=== PATIENT | female | born 1965 | race Caucasian/White ===

== ENCOUNTER 2025-09-30 08:56 | Observation (INO) ==
--- NOTE | 2025-09-01 09:10 | PAT Medication Instructions ---
Medication Instructions Date of Service September 01, 2025 Home Medications Bifidobacterium infantis 10.5 mg (10 million cell) chewable tablet (Align (B.infantis)) 10.5 mg PO DAILY amlodipine 5 mg tablet 5 mg PO QAM ascorbic acid 7.5 mg-vit E 7.5 unit-biotin 1,250 mcg chewable tablet (Jian r,Skin,Nails with Biotin) 2 tab PO DAILY aspirin 81 mg tablet 81 mg PO QAM atenolol 50 mg tablet 50 mg PO QAM citalopram 10 mg tablet 10 mg PO QAM levothyroxine 88 mcg tablet 88 mcg PO QAM lisinopril 20 mg tablet 20 mg PO QAM metformin 500 mg tablet 500 mg PO BID semaglutide 2 mg/dose (8 mg/3 mL) subcutaneous pen injector (Ozempic) 2 mg subcut Q7D hydroxyzine HCl 25 mg tablet 25 mg PO HS PRN ibuprofen 200 mg tablet (Advil) 400 mg PO BID naproxen sodium 220 mg tablet (Aleve) 440 mg PO DAILY STOP 7 days before surgery semaglutide 2 mg/dose (8 mg/3 mL) subcutaneous pen injector (Ozempic) 2 mg subcut Q7D ASK your surgeon for instructions ibuprofen 200 mg tablet (Advil) 400 mg PO BID naproxen sodium 220 mg tablet (Aleve) 440 mg PO DAILY ASK your prescriber and surgeon aspirin 81 mg tablet 81 mg PO QAM STOP taking 2 weeks before surgery (or as soon as possible if surgery is within 2 weeks) ascorbic acid 7.5 mg-vit E 7.5 unit-biotin 1,250 mcg chewable tablet (Hair,Skin,Nails with Biotin) 2 tab PO DAILY DO NOT take the morning of surgery Bifidobacterium infantis 10.5 mg (10 million cell) chewable tablet (Align (B.infantis)) 10.5 mg PO DAILY lisinopril 20 mg tablet 20 mg PO QAM metformin 500 mg tablet 500 mg PO BID Take morning of surgery With a small sip of water, OTHERWISE NOTHING TO EAT OR DRINK AFTER MIDNIGHT: amlodipine 5 mg tablet 5 mg PO QAM atenolol 50 mg tablet 50 mg PO QAM citalopram 10 mg tablet 10 mg PO QAM levothyroxine 88 mcg tablet 88 mcg PO QAM Take evening before surgery metformin 500 mg tablet 500 mg PO BID hydroxyzine HCl 25 mg tablet 25 mg PO HS PRN(if needed) Other Notes If you have any questions please call us at [phone] or [phone] or [phone] or [phone]
--- NOTE | 2025-09-08 12:20 | Anesthesiology Consultation ---
Date of Service September 08, 2025 Assessment & Plan (1) Encounter for pre-operative examination: Chart Review Chart Review: Acceptable Risk for Surgery and Patient seen in Pre Admission Testing - Check BSG AM DOS - Patient informed by nursing to stop Ozempic 7 days prior to surgery. Last dose of Ozempic scheduled 09/20/25. Will be off Ozempic x 10 days prior to DOS on 09/30/25 - Patient is not an ideal OPJ candidate (lives alone)- currently 23 hour obs Per PAT appt on 09/08/25, no recent illness/disease exposures, illness related symptoms, or recent illness/disease positive tests. Will leave to surgeon's discretion if preop Covid testing needed Teaching & Discussion Pre-Anesthesia Teaching/Discussion Notes: Instructed NPO after midnight before surgery,except medications with 15 cc of water. Medication instructions provided according to the [facility] guidelines. History Surgery Operation Date: 09/30/25 10:40 Proposed Procedures p Left Total Knee Arthroplasty - Klaus Denis MD Height/Weight Height: 5 ft 7 in Weight: 127.6 kg Allergies Allergy/AdvReac Type Severity Reaction Status Date / Time [id number] Reductase Allergy myalgia Verified 08/30/25 09:02 Inhibitor Medications Home Medications Medication Instructions Recorded Confirmed Last Taken Bifidobacterium infantis 10.5 mg 10.5 mg PO DAILY 08/01/25 08/30/25 Unknown (10 million cell) chewable tablet (Align (B.infantis)) amlodipine 5 mg tablet 5 mg PO QAM 08/01/25 08/30/25 08/08/25 05:30 ascorbic acid 7.5 mg-vit E 7.5 2 tab PO DAILY 08/01/25 08/30/25 Unknown unit-biotin 1,250 mcg chewable tablet (Hair,Skin,Nails with Biotin) aspirin 81 mg tablet 81 mg PO QAM 08/01/25 08/30/25 08/08/25 05:30 atenolol 50 mg tablet 50 mg PO QAM 08/01/25 08/30/25 08/08/25 05:30 citalopram 10 mg tablet 10 mg PO QAM 08/01/25 08/30/25 08/08/25 05:30 levothyroxine 88 mcg tablet 88 mcg PO QAM 08/01/25 08/30/25 08/08/25 04:30 lisinopril 20 mg tablet 20 mg PO QAM 08/01/25 08/30/25 08/08/25 05:30 metformin 500 mg tablet 500 mg PO BID 08/01/25 08/30/25 08/07/25 semaglutide 2 mg/dose (8 mg/3 mL) 2 mg subcut Q7D 08/01/25 08/30/25 07/28/25 subcutaneous pen injector (Ozempic) hydroxyzine HCl 25 mg tablet 25 mg PO HS PRN anxiety/insomnia 08/30/25 08/30/25 Unknown ibuprofen 200 mg tablet (Advil) 400 mg PO BID 08/30/25 08/30/25 Unknown naproxen sodium 220 mg tablet 440 mg PO DAILY 08/30/25 08/30/25 Unknown (Aleve) Past Medical History Medical History Diabetes mellitus, type 2 Oral/Weekly Inj History of anxiety History of COVID-19 08/2020, resolved 12/2022, resolved Hypertension Hypothyroidism Osteoarthritis of both knees Exercise / Class Metabolic Activity II 4-5 Yardwork/Stairs/Walk up hill (one flight of stairs - no chest pain or SOB ) Past Surgical History Surgical History History of cornea transplant 2003 2006 History of left cataract extraction (2016) Hx of right cataract extraction Past Anesthesia History No Hx of Anesthesia Complications and No Family Hx of Anesthesia Complications History of PONV No Hx of PONV and No Hx of Motion Sickness Social History Smoking Status: Former smoker Do You Dip or Chew Tobacco: No Smoking End Date: smoked for 10 years until 2006 Hx Alcohol Use: No Hx Substance Use: No substance use type: former substance user and marijuana Last Used Substance Other:: occasional in her 30's to 40's, "none since then" Review of Systems - Hx of snoring in the past - improved with 70lb weight loss - no hx of sleep study Patient denies chest pain, shortness of breath, dyspnea on exertion, reflux, cough, wheezing, palpitations. No hx of seizures, stroke, SD. No hx of blood clots or blood transfusions Physical Exam Vital Signs VITALS BP 158/82 P 72 TEMP 98.1 SP02 97% RESP 16 Constitutional no acute distress ENMT Mouth: no TMJ clicking Thyromental Distance: > or= 3.5 Finger Breadths (3.5) Mallampati Class: III Missing top molars on each side Neck neck extension not limited Respiratory normal respiratory effort; no respiratory distress Auscultation: lungs clear to auscultation bilaterally; no wheezes Cardiovascular Rate/Rhythm: regular rate and regular rhythm Heart Sounds: no murmur Vessels: no carotid bruit Musculoskeletal Spine: no pain with cervical ROM Extremities: extremities normal to inspection Psychiatric Orientation: alert Lab Results Anesthesia Preop Results Results Anesthesia Widget: WBC 7.14 K/ul (4.8-10.8) 09/08/25 Hgb 13.6 g/dl (12.0-16.0) 09/08/25 Hct 40.2 % (37.0-47.0) 09/08/25 Plt 290 K/uL (130-400) 09/08/25 Na 135 mmol/L (136-145) L 09/08/25 K 4.1 mmol/L (3.5-5.1) 09/08/25 Cl 98 mmol/L (98-107) 09/08/25 CO2 28 mmol/L (21-32) 09/08/25 BUN 15 mg/dl (6-23) 09/08/25 Creat 0.73 mg/dl (0.6-1.2) 09/08/25 Glucose Level 176 mg/dl (70-99(Fasting)) H 09/08/25 PT 10.3 Seconds (9.0-12.0) 09/08/25 PTT 27 Seconds (21-31) 09/08/25 INR 1.0 (0.9-1.1) 09/08/25 HA1c 6.7 % (4.5-5.6) H 09/08/25 Blood Type A Positive 09/08/25 Antibody Screen NEGATIVE 09/08/25 Testing Electrocardiogram Date: 09/08/25 Findings: + NSR @ (66bpm) Normal EKG per cardio Chest X-Ray Date: 09/08/25 Findings: + NAD
--- NOTE | 2025-09-22 20:15 | History & Physical Report ---
Date of Service September 22, 2025 Assessment & Plan (1) Osteoarthritis of left knee: 59-year-old female with a several year history of increasing left knee pain discomfort consistent with osteoarthritis. She is failed conservative measures. She is ready to have her left knee fixed. Plan will Tani take her to the operating room left total knee replacement the risks met this procedure explained. Informed consent was obtained. She will stay in hospital overnight likely discharge postop day 1. I will see her back 2 to 3 weeks postop. (2) Osteoarthritis of right knee: (3) Hypertension: (4) Diabetes mellitus, type 2: (5) Hypothyroidism: History of Present Illness Chief Complaint: . Left knee pain. Primary Care Provider: Julia Henley . The patient is a 59-year-old female with who presents now for more definitive treatment of her left knee. She has about a 15-year history of persistent and progressive left knee pain discomfort which gradually got worse over time. 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 On 1 occasion she had pivoted and her knee counter popped and she has had increasing pain since that time. The pain is mostly medial but some global pain. More she is up a lot of the more it swells and the more it hurts. She enjoys exercising but having trouble doing it as her knee swells up afterwards. Difficulty going up and down stairs. There should like to proceed with definitive treatment. Allergies Allergy/AdvReac Type Severity Reaction Status Date / Time [id number]-[id number] Reductase Allergy myalgia Verified 08/30/25 09:02 Inhibitor Home Medications Medication Instructions Recorded Confirmed Type Bifidobacterium infantis 10.5 mg 10.5 mg PO DAILY 08/01/25 08/30/25 History (10 million cell) chewable tablet (Align (B.infantis)) amlodipine 5 mg tablet 5 mg PO QAM 08/01/25 08/30/25 History ascorbic acid 7.5 mg-vit E 7.5 2 tab PO DAILY 08/01/25 08/30/25 History unit-biotin 1,250 mcg chewable tablet (Hair,Skin,Nails with Biotin) aspirin 81 mg tablet 81 mg PO QAM 08/01/25 08/30/25 History atenolol 50 mg tablet 50 mg PO QAM 08/01/25 08/30/25 History citalopram 10 mg tablet 10 mg PO QAM 08/01/25 08/30/25 History levothyroxine 88 mcg tablet 88 mcg PO QAM 08/01/25 08/30/25 History lisinopril 20 mg tablet 20 mg PO QAM 08/01/25 08/30/25 History metformin 500 mg tablet 500 mg PO BID 08/01/25 08/30/25 History semaglutide 2 mg/dose (8 mg/3 mL) 2 mg subcut Q7D 08/01/25 08/30/25 History subcutaneous pen injector (Ozempic) hydroxyzine HCl 25 mg tablet 25 mg PO HS PRN anxiety/insomnia 08/30/25 08/30/25 History ibuprofen 200 mg tablet (Advil) 400 mg PO BID 08/30/25 08/30/25 History naproxen sodium 220 mg tablet 440 mg PO DAILY 08/30/25 08/30/25 History (Aleve) Past Med/Surg History Problem List Encounter for pre-operative examination Osteoarthritis of right knee Osteoarthritis of left knee Medical History Osteoarthritis of both knees History of COVID-19 08/2020, resolved 12/2022, resolved History of anxiety Hypothyroidism Diabetes mellitus, type 2 Oral/Weekly Inj Hypertension Surgical History Hx of right cataract extraction History of cornea transplant 2003 2006 History of left cataract extraction (2015) Social History Smoking Status: Former smoker Tobacco Type: Cigarettes Second Hand Exposure: Yes (hx); Do You Dip or Chew Tobacco: No; Hx Alcohol Use: No Hx Substance Use: No Preferred Language: Mongolian Communication Ability: Effective Data Entry Clerk Required: No Beliefs That Will Affect Care: None Current Living Situation: Alone Feels Safe at Home: Yes Assistive Devices: None Review of Systems All systems reviewed & are unremarkable except as noted in HPI & below. Physical Exam . Physical examination reveals Pleasant 59-year-old female. Today she looks to be in reasonably health. Moderately obese. Examination of the left knee reveals the patient ambulates independently. Got a moderate to large soft tissue envelope. Tender to along the medial joint line. Small knee effusion. Range of motion is 0 to about 110. No instability. No pain with hip motion. Respiratory normal respiratory effort, lungs clear to auscultation Cardiovascular RRR, no murmur, no edema Gastrointestinal (Abdomen) normal bowel sounds, soft, nontender, no hepatosplenomegaly Results & Data Results & Data Laboratory Results . Diagnostic Findings . PG Care Time/CCT Total # of Minutes Spent Total Time Spent with Patient: Total time spent is greater than 50% in coordination of care (as documented) at patient's floor/unit and/or counseling patient: Coding Level of Care Code None Diagnoses Primary osteoarthritis of left knee M17.12 Osteoarthritis type: primary Primary osteoarthritis of right knee M17.11 Osteoarthritis type: primary Hypertension I10 Diabetes mellitus, type 2 E11.9 Hypothyroidism E03.9 (1) Osteoarthritis of left knee Osteoarthritis type: primary Qualified Code(s): M17.12 - Unilateral primary osteoarthritis, left knee (2) Osteoarthritis of right knee Osteoarthritis type: primary Qualified Code(s): M17.11 - Unilateral primary osteoarthritis, right knee
[~2025-09-30 08:56] MED LIST: BUPIVACAINE 0.25% PF 30 ML VIAL ONE; BUPIVACAINE 0.5 % 5 MG/1 ML PF 10ML VIAL ONE
[2025-09-30] MEDS ORDERED: MIDAZOLAM HCL 1 MG/ML 2ML VIAL ONE (09:53)
[2025-09-30] MEDS ORDERED: PROPOFOL IV EMULSION 10 MG/ML 20 ML VIAL IV ONE ×4 (09:53→14:05)
[2025-09-30] MEDS ORDERED: ONDANSETRON INJ 2 MG/ML 2 ML VIAL ONE (09:53)
[2025-09-30] MEDS: LR 500ML BOLUS, THEN 15ML/HR IV SCH (10:00)
[2025-09-30] MEDS: LR 60ML/HR IV SCH (10:02)
[2025-09-30] MEDS: dexAMETHasone**PF** 10 MG/ML VIAL IV SCH (10:03)
[2025-09-30] MEDS: METOCLOPRAMIDE HCL 10 MG TABLET PO SCH (10:03)
[2025-09-30] MEDS: FAMOTIDINE 20 MG TAB PO SCH (10:03)
[2025-09-30] MEDS: ACETAMINOPHEN 500 MG TAB PO SCH ×2 (10:03→16:22)
[2025-09-30] MEDS: CeleBREX 200 MG CAP PO SCH (10:03)
[2025-09-30] MEDS: NovoLIN-R INSULIN PER UNIT CHARGE ONE (10:09)
[2025-09-30] MEDS: INSULIN HUMAN REGULAR PER UNIT 3 UNITS in SYRINGE 2.97 ML IV STA (10:10)
[2025-09-30] MEDS ORDERED: ONDANSETRON INJ 2 MG/ML 2 ML VIAL IV PRN ×2 (10:12→15:32)
[2025-09-30] MEDS ORDERED: ATROPINE SULFATE 0.1 MG/ML 10ML SYR IV PRN (10:12)
--- NOTE | 2025-09-30 10:54 | History & Physical Bridge Note ---
Date of Service September 30, 2025 History & Physical Bridge Note I have examined the patient, reviewed the History & Physical and in the interval since the performance of the History & Physical I have noted the following changes of clinical significance: no changes noted
[2025-09-30] MEDS: ceFAZolin 3000MG 3,000 MG/72.5 ML BAG IV SCH (11:11)
[2025-09-30] MEDS: ORTHO JOINT ANESTHETIC ONE (11:55)
[2025-09-30] MEDS: ROPIV 0.5% 246mg, Ketorolac 30mg, EPINEPHrine 0.5mg in NSS INFIL SCH (12:07)
--- NOTE | 2025-09-30 13:20 | Operative Report ---
PG Post Operative Report Pre & Post Diagnosis Operation Date: 09/30/25 11:00 Pre-Op Diagnosis: Osteoarthritis of left knee Post-Op Diagnosis: Osteoarthritis of left knee I identified the patient and participated in the time-out.: Yes Procedure Operation Date: 09/30/25 11:00 Actual Procedures p Left Total Knee Arthroplasty(Left) - Klaus Denis MD Surgeon Klaus Denis MD House Parent Roger Bobo PA-C Estimated Blood Loss 50 Findings Consistent with Post-Op Diagnosis Specimens Left knee sent for pathology Anesthesia Type Spinal MAC Complications none Disposition Accompanied Patient To Recovery: No Indications The patient is a 59-year-old female with a long history of bilateral knee pain and discomfort describes gotten worse over time she been through extensive conservative treatment over the years which became less successful. X-rays show advanced bilateral knee arthritis. She elected proceed with left total knee arthroplasty. Description of Procedure Operative implants consist of: 1 Biomet Vanguard size 70 left posterior stabilized femoral component. 2. Biomet size 75 tibial tray. 3. 10 mm posterior stabilized polyethylene insert. 4. 31 x 8 all poly patella. The patient was taken to the operating room, identified, placed on the operating table in the supine position. All contact areas were appropriately padded. IV antibiotics were provided by anesthesia team. A spinal anesthetic and adductor canal block had been provided in the holding area. A Murray catheter was placed in sterile fashion. Left thigh tent was then placed. Left lower extremity was then prepped and draped in usual sterile fashion. The left leg was elevated and exsanguinated with use of an Esmarch and a tourniquet placed at 300 mmHg. An anterior approach to the left knee was then performed to longitudinal incision centered over the patella. Sharp dissection was Through subcutaneous tissue down the extensor mechanism. A medial parapatellar arthrotomy incision was made. Some subperiosteal dissection was carried out medially. The fat pad was resected from the patella tendon. Lateral patellofemoral ligament was released. Patella subluxate laterally and knee was flexed. The osteophytes taken off distal femur. The ACL and PCL were then released from the distal femur and the tibia subluxated anteriorly. The external tibial alignment jig was then placed on the anterior face of the tibia and adjusted 14 mm medially. The proximal tibial cut was made essentially flush with the most deficient aspect of the posterior medial tibial plateau. Some osteophytes taken off medially. The tibia sized to a size 75. Attention then drawn the femur. The distal femur was then with a sharp drill. Intramedullary canal was suction. A left L5 degree valgus cutting guide was placed. The distal femoral cutting block was pinned in place. The distal femoral cut was made to take an additional 3 mm of bone off distal femur. The femur was then sized to a size 70. The AP cutting block was pinned parallel to the epicondylar axis which was 4 degrees of external rotation. The anterior cut, anterior chamfer, posterior cut, posterior chamfer cuts were made. The box cutting guide was then placed in a just slight lateral and the box cut was made. The knee was flexed. The remnants of the medial and lateral menisci were excised. The osteophytes were taken off the posterior aspect of femur. A trial femoral component was placed. The tibial tray was pinned in Sherly external rotation and the drill and stem punch used to create defect in proximal tibia for the tibial tray. The knee was then trialed and the 10 mm insert fit most appropriately. Attention drawn the patella. The patella was cleaned of all soft tissue. Patella thickness measured 23 mm in thickness and was cut down to 14. Was sized to a size 31 patella. The lug holes were drilled for the 31 patella. The lateral osteophyte was removed. Patella button was placed. Knee was taken through range of motion patella tracked nicely with no thumbs test. Attention then drawn to place a permanent components. All trial components were removed. Bone plug was placed into distal femur limit blood loss. Double batch Palacos G cement was mixed. Biomet Vanguard size 70 left posterior stabilized femoral component, size 75 tibial tray, a 10 mm Po stabilized polyethylene insert, and a 31 x 8 all poly patella were then cemented in place. The knee was brought out into full extension till cement hardened. A final cement check was then performed. Pericapsular tissues were injected with total 100 cc of Ortho mix. Patient did receive 1 g of tranexamic acid. The tourniquet was then let down for final tourniquet time of 66 minutes. Hemostasis assured use electrocautery. Extensor Meclomen closed with combination 1 PDS suture #1 Vicryl suture in a [id number] fashion. Extensor Meclomen checked found to be intact. Subcutaneous tissue then closed with 2 Dexon suture in a buried interrupted fashion skin was closed skin pablo. Leg was then cleaned and dried and a sterile dressing with Xeroform, 4 fours, sterile ABD pad, sterile cast padding, Shiv bandage were applied. Patient then transferred to the recovery room in stable condition. Patient tolerated procedure well and no complications. Roger Bobo, my physician assistant site manager, was present for the entire procedure. His assistance was essential and required for appropriate patient positioning, prepping and draping, surgical exposure, performing the technical details of the operation, placement the implants, closure of the wound, and placement of the sterile bandage. I attest to the content of the Intraoperative Record and any orders documented therein. Any exceptions are noted below.
--- NOTE | 2025-09-30 13:50 | XRay Report ---
XR knee LT 1 or 2V routine CLINICAL HISTORY: Surgical Post Op COMPARISON: None FINDINGS: Left knee prosthesis shows no hardware complication. There is expected soft tissue gas. Sk in pablo are present. IMPRESSION: Unremarkable postoperative exam. ACT 112: Negative or not required by law. Electronically signed by: Judd Leon M.D. 09/30/2025 1:48 PM
--- NOTE | 2025-09-30 14:31 | Anesthesiology Progress Note ---
Date of Service September 30, 2025 Anesthesia Post Procedure Vital Signs Vital Signs: Temp Pulse Pulse Resp BP Pulse Ox O2 Del Method 09/30/25 14:20 60 13 132/75 92 Room Air 09/30/25 14:10 58 L 20 125/71 92 Room Air 09/30/25 14:00 59 L 14 127/73 95 Room Air 09/30/25 13:50 36.8 C 68 24 128/74 94 Room Air 09/30/25 13:40 61 16 116/68 92 Room Air 09/30/25 13:30 67 20 116/72 93 Room Air 09/30/25 13:20 64 15 103/66 93 Room Air 09/30/25 13:14 36.6 C 69 12 110/58 L 94 Room Air 09/30/25 09:29 36.9 C 60 20 198/93 H 96 Room Air Pain Intensity Left Knee: Pain Intensity: 5 Transfer of Care Handoff Completed per policy Notes Mental Status: alert / awake / arousable Patient Amnestic to Procedure: Yes Nausea / Vomiting: adequately controlled Pain: adequately controlled Airway Patency, RR, SpO2: stable & adequate BP & HR: stable & adequate Hydration State: stable & adequate Neuraxial Anesthesia: was administered and sensory block is resolving Anesthetic Complications: no major complications apparent
[2025-09-30] MEDS ORDERED: HYDROmorphone INJ 0.5 MG/0.5 ML SYR IV PRN (15:32)
[2025-09-30] MEDS ORDERED: DEXTROSE 50% 50 ML SYRINGE IV PRN (15:32)
[2025-09-30] MEDS ORDERED: GLUCOSE 40% GEL 15 GM TUBE PO PRN (15:32)
[2025-09-30] MEDS ORDERED: PHARMACY GLYCEMIC MGMT CONSULT PRN (15:32)
[2025-09-30] MEDS ORDERED: ALUMINUM/MAGNESIUM SUSP 30 ML UDC PO PRN (15:32)
[2025-09-30] MEDS ORDERED: METOCLOPRAMIDE HCL INJ 5 MG/ML 2 ML VIAL IV PRN (15:32)
[2025-09-30] MEDS ORDERED: GLUCAGON FOR INJ 1 MG VIAL SQ PRN (15:32)
[2025-09-30] MEDS ORDERED: NALOXONE HCL 0.4 MG/1 ML VIAL/CARP IV PRN (15:32)
[2025-09-30] MEDS ORDERED: GLUCOSE 10 TAB/TUBE PO PRN (15:32)
[2025-09-30] MEDS ORDERED: CARBOHYDRATES FOR HYPOGLYCEMIA PO PRN (15:32)
[2025-09-30] MEDS ORDERED: MAGNESIUM HYDROXIDE SUSP 30 ML UDC PO PRN (15:32)
[2025-09-30] MEDS: KETOROLAC 30 MG/ML VIAL IV SCH (16:24)
[2025-09-30] MEDS: SODIUM CHLORIDE 0.9% 1,000 ML IV SCH (16:26)
[2025-09-30] MEDS: ASCORBIC ACID 500 MG TAB PO SCH (17:50)
[2025-09-30] MEDS: INSULIN ASPART PER UNIT CHARGE SC SCH (18:34)
[2025-09-30] MEDS: TRANEXAMIC ACID / 0.7% NACL 1,000 MG/100 ML BAG IV SCH (19:33)
[2025-09-30] MEDS ORDERED: SENNA 8.6 MG TAB PO SCH (21:00)
[2025-09-30] MEDS: DOCUSATE SODIUM 100 MG CAP PO SCH (21:11)
[2025-09-30] MEDS: SENNA 8.6 MG TAB PO SCH (21:11)
[2025-09-30] MEDS: ASPIRIN 81 MG ECTAB PO SCH (21:11)
[2025-10-01] MEDS: LEVOTHYROXINE SODIUM 88 MCG TABLET PO SCH (05:54)
[2025-10-01 06:56] LABS: Hematocrit (blood only) 32.1 % (37.0-47.0); Hemoglobin 11.1 g/dL (12.0-16.0); Mean Corpuscular Hemoglobin 30.2 pg (25.0-34.0); Mean Corpuscular Volume 87.2 fL (80.0-100.0); Platelet Count 246 K/uL (130-400); RDW Standard Deviation 40.4 fL (36.4-46.3); Red Blood Count 3.68 M/uL (4.20-5.40); White Blood Count 13.32 K/ul (4.8-10.8)
[2025-10-01 07:25] LABS: Anion Gap 6.0 (3-11); Blood Urea Nitrogen 13.0 mg/dl (6-23); Calcium 8.1 mg/dl (8.6-10.3); Carbon Dioxide 27.0 mmol/L (21-32); Chloride 103.0 mmol/L (98-107); Creatinine Clr Calc Pharmacy 129.4 ml/min; Glucose 169.0 mg/dl (70-99(Fasting)); Potassium 4.4 mmol/L (3.5-5.1); Sodium 136.0 mmol/L (136-145)
--- NOTE | 2025-10-01 07:33 | Orthopedic Progress Note ---
Date of Service October 01, 2025 Assessment & Plan (1) Status post left knee replacement: Plan: 59-year-old female postop day 1 from the left knee replacement doing pretty well. Pains controlled. Up for a good night. Plan: 1. DVT prophylaxis including thigh-high teds, SCDs, aspirin twice a day. 2. PT/OT. Weight-bear as tolerated. Left total knee protocol. 3. Pain control. Doing well with current pain regimen. 4. Disposition. Plan is discharged to home with some home health if she does okay in therapy today. (2) Diabetes mellitus, type 2: (3) Hypertension: (4) Hypothyroidism: Admission and Anticipated Discharge Date Admission Date: September 30, 2025 Subjective 59-year-old female postop day 1 from left knee replacement. That she is doing pretty well. Had a pretty good night. Pains been controlled. No chest pain or shortness of breath. Not feeling dizzy or lightheaded. Looking forward to going home today. Physical Exam Physical Exam: Physical exam shows a pleasant middle-age female. She is lying in bed looks pretty comfortable. Examination of the left leg reveals a dressing clean dry and intact. She can dorsiflex and plantarflex her foot appropriately. She has got a good straight leg raise. Respiratory: normal respiratory effort, lungs clear to auscultation Cardiovascular: RRR, no murmur, no edema Gastrointestinal (Abdomen): normal bowel sounds, soft, nontender, no hepatosplenomegaly Results & Data Vital Signs (Past 12 Hours) Vital Signs Temp Pulse Resp BP Pulse Ox O2 Del Method 10/01/25 04:29 36.8 C 59 L 17 158/97 H 95 Room Air 10/01/25 00:44 36.7 C 67 16 166/78 H 95 Room Air 09/30/25 22:02 36.9 C 75 20 151/78 H 95 Room Air Laboratory Results Hemoglobin is 11.1. Hematocrit is 32.1. Electrolytes are stable.
[2025-10-01] MEDS: dexAMETHasone 10 MG in SYRINGE 0 ML IV SCH (08:44)
[2025-10-01] MEDS: ADVANCED PROBIOTIC 625 MG CAPSULE PO SCH (08:46)
[2025-10-01] MEDS: MULTIVITAMIN TAB PO SCH (08:46)
[2025-10-01] MEDS: CITALOPRAM 20 MG TAB PO SCH (08:46)
[2025-10-01] MEDS: ATENOLOL 50 MG TABLET PO SCH (08:46)
[2025-10-01] MEDS ORDERED: NON-FORMULARY MEDICATION (Ascorbic Acid-Vitamin E-Biotin [Hair, Skin, Nails With Biotin] 7 PO SCH (09:00)
== END 2025-10-01 11:59 | disposition home health service (06) ==
LOC: ASU 08:56 → 3N 08:56
DX: Z79.82 Long term (current) use of aspirin; Z79.890 Hormone replacement therapy; I10 Essential (primary) hypertension; E11.9 Type 2 diabetes mellitus without complications; Z88.8 Allergy status to other drugs, medicaments and biological substances; Z79.84 Long term (current) use of oral hypoglycemic drugs; M65.962 Unspecified synovitis and tenosynovitis, left lower leg; M17.12 Unilateral primary osteoarthritis, left knee; Z87.891 Personal history of nicotine dependence; E03.9 Hypothyroidism, unspecified